=== PATIENT | female | born 1955 | race Caucasian/White ===

== ENCOUNTER 2022-10-21 08:36 | Day surgery (SDC) | payer MEDICARE, SELFPAY ==
--- NOTE | 2022-10-20 12:27 | HO.ANESPROP2 ---
Documented by User: Carly Taylor NP 10/20/22 12:33 HPI - Anesthesia Eval Consult details Narrative: 66yo F for [facility] Past Medical History Medical History (Updated 10/21/22 @ 11:57 by Julianne Armas MD) Cervical disc disease Depression GERD (gastroesophageal reflux disease) HTN (hypertension) Osteoporosis Thyroid nodule Vitamin D deficiency Surgical History Surgical History H/O cervical discectomy (~2012) H/O section (~1980) H/O esophagogastroduodenoscopy (~2016) H/O: hysterectomy (~1988) History of appendectomy (~1972) History of cholecystectomy (~2009) Social History Social History Patient Tobacco Use Status: Never used Tobacco Use of substances other than those prescribed or required for medical reasons: No Are you DNR?: No Advance Directives: No Advance Directives Information Provided: Yes Meds Allergies Allergy/AdvReac Type Severity Reaction Status Date / Time codeine [Codeine] Allergy Unknown UNKNOWN Unverified 06/28/20 17:00 latex [Latex] Allergy Unknown RASH Unverified 06/28/20 17:00 levofloxacin [From Levaquin] Allergy Unknown UNKNOWN Unverified 06/28/20 17:00 Home Medications Medication Instructions Recorded Confirmed Last Taken Type alendronate 70 mg tablet 1 tab PO QWEEK 10/20/22 10/20/22 Unknown History calcium phosphate,dibasic 77 1 tab PO 10/20/22 Unknown History mg-vitamin D3 400 unit tablet fluoxetine 40 mg capsule 1 cap PO DAILY 10/20/22 10/20/22 10/21/22 History melatonin 3 mg tablet 3 mg PO BEDTIME PRN Insomnia 10/20/22 10/20/22 Unknown History multivitamin 1 tab PO DAILY 10/20/22 10/20/22 Unknown History omeprazole 20 mg capsule,delayed 20 mg PO DAILY 10/20/22 10/21/22 Unknown History release amlodipine 5 mg tablet 1 tab PO DAILY 10/21/22 10/21/22 10/21/22 History Exam Exam Date and Time: October 20, 20227 Documented by User: Julianne Armas MD 10/21/22 11:59 PMF Past Medical History Medical History (Updated 10/21/22 @ 11:57 by Julianne Armas MD) Cervical disc disease Depression GERD (gastroesophageal reflux disease) HTN (hypertension) Osteoporosis Thyroid nodule Vitamin D deficiency Family History Family history of problems with anesthesia: No Surgical History Surgical History H/O cervical discectomy (~2012) H/O section (~1980) H/O esophagogastroduodenoscopy (~2016) H/O: hysterectomy (~1988) History of appendectomy (~1972) History of cholecystectomy (~2009) History of Problems with Anesthesia: No Social History Social History Patient Tobacco Use Status: Never used Tobacco Use of substances other than those prescribed or required for medical reasons: No Are you DNR?: No Advance Directives: No Advance Directives Information Provided: Yes Meds Allergies Allergy/AdvReac Type Severity Reaction Status Date / Time codeine [Codeine] Allergy Unknown UNKNOWN Unverified 06/28/20 17:00 latex [Latex] Allergy Unknown RASH Unverified 06/28/20 17:00 levofloxacin [From Levaquin] Allergy Unknown UNKNOWN Unverified 06/28/20 17:00 Home Medications Medication Instructions Recorded Confirmed Last Taken Type alendronate 70 mg tablet 1 tab PO QWEEK 10/20/22 10/20/22 Unknown History calcium phosphate,dibasic 77 1 tab PO 10/20/22 Unknown History mg-vitamin D3 400 unit tablet fluoxetine 40 mg capsule 1 cap PO DAILY 10/20/22 10/20/22 10/21/22 History melatonin 3 mg tablet 3 mg PO BEDTIME PRN Insomnia 10/20/22 10/20/22 Unknown History multivitamin 1 tab PO DAILY 10/20/22 10/20/22 Unknown History omeprazole 20 mg capsule,delayed 20 mg PO DAILY 10/20/22 10/21/22 Unknown History release amlodipine 5 mg tablet 1 tab PO DAILY 10/21/22 10/21/22 10/21/22 History Exam Height,Weight and Vital Signs: Height 4 ft 11 in Weight 61.689 kg Vital Signs Temp Pulse Resp BP Pulse Ox O2 Del Method 10/21/22 09:51 98.0 F 73 16 149/74 H 96 Room Air Airway Mallampati Class: III TM Dist: >3cm Neck ROM: Full Loose/Missing/Broken Teeth: No (Denies broken, loose, missing teeth) Heart: RRR Lungs: CTAB Assessment and Plan Assessment Anesthesia Assessment: Anesthesia Plan Discussed and Chart Reviewed Final Anesthetic Review Family History of Problems with Anesthesia: No History of Problems with Anesthesia: No NPO: Yes ASA Class: II Final Preanesthetic Review: No Changes in Pt Med Stat, Meds/Allgs Chart Reviewed, Consent Obtained/Reviewed and Anes Risks/Benef Reviewed Patient Risk: Low Procedure Risk: Low Assessment/Block/Sedation in SS: Assess/Block/Sedation-SS Anesthetic Plan Anesthetic Plan: MAC: Disposition: Standard PACU
[2022-10-21 09:46] VITALS: BMI 27.4
[2022-10-21 09:51] VITALS: BP 149/74; PULSE 73; RESP 16; TEMP 36.7; O2SAT 96
[2022-10-21] MEDS: Lactated Ringers 1,000 ML 100 ML IVCONT (10:29)
--- NOTE | 2022-10-21 12:15 | MHC.SHP ---
Pre-Procedural Eval Section A Date of Service: 10/21/22 The patient is an INPATIENT: No Changes since office visit: No Cold of Flu in the past 2 weeks, No New Medical Problems, No Changes in Medication and No Patient answered all questions The History & Physical has been completed within 30 days and I have reviewed it.: Yes Section B Chief Complaint: Encounter for screening for malignant neoplasm of Allergies: Allergies Allergy/AdvReac Type Severity Reaction Status Date / Time codeine [Codeine] Allergy Unknown UNKNOWN Unverified 06/28/20 17:00 latex [Latex] Allergy Unknown RASH Unverified 06/28/20 17:00 levofloxacin [From Levaquin] Allergy Unknown UNKNOWN Unverified 06/28/20 17:00 Plan I have reviewed the history and physical and performed a pertinent physical examination on my patient. No changes have occurred unless specified. Time Spent With Patient Time: Total time managing care of this patient today ____ minutes.
--- NOTE | 2022-10-21 12:52 | PM.OP ---
Brief Operative Note Date of Service: 10/21/22 Pre-op diagnosis: SCREENING Post-op diagnosis: same Procedure: COLONOSCOPY Surgeon: Willi Franco Anesthesia: MAC Was an Firefighter [employer] used for this Procedure?: No Estimated blood loss (mL): 2 Pathology: other Condition: stable Disposition: PACU
[2022-10-21 12:57] VITALS: BP 104/44; PULSE 69; RESP 17; TEMP 37.3; O2SAT 100
[2022-10-21 13:25] VITALS: BP 123/51; PULSE 63; RESP 18; TEMP 36.1; O2SAT 96
--- NOTE | 2022-10-21 23:45 | OP_ITS ---
SURGEON: Willi Franco MD INDICATIONS: Colon cancer screening and family history of colon cancer. PREOPERATIVE DIAGNOSIS: POSTOPERATIVE DIAGNOSIS: PROCEDURE PERFORMED: Colonoscopy to the cecum with biopsy. ESTIMATED BLOOD LOSS: COMPLICATIONS: ANESTHESIA: Monitored anesthesia care. ASSISTANTS: SPECIMENS: DESCRIPTION OF PROCEDURE: History and physical was performed. The procedure was performed 10/21/2022. The digital rectal exam was performed and was found to be normal. The Olympus pediatric video colonoscope was introduced into the rectum and advanced to the cecum without difficulty. The cecum was identified by transillumination, palpation, and identification of ileocecal valve. Examination was performed. The scope was removed. She tolerated the procedure well and was returned to recovery room in stable condition. FINDINGS: The terminal ileum was not examined. The visualized colonic mucosa was normal. The quality of the prep was good. There was a single polyp was located at 20 cm measuring less than 5 mm and was removed with biopsy forceps. No other polyps were identified. The sigmoid was quite tortuous. Retroflexed examination showed small internal hemorrhoids. IMPRESSION: Colon polyp. RECOMMENDATION: 1. Follow up biopsy results. MD YOLANDA Simpson/JAQUELINE / [id number]
== END 2022-10-21 13:52 | disposition home or self-care (01) ==
PROVIDERS: PCP Internal Medicine; Visit Provider Internal Medicine Gastroenterology
PROC: 0DJD8ZZ Inspection of Lower Intestinal Tract, Via Natural or Artificial Opening Endoscopic (ICD-10-PCS; CPT 45378; principal; 2022-10-21 09:50)
DX: Z12.11 Encounter for screening for malignant neoplasm of colon (principal); Z80.0 Family history of malignant neoplasm of digestive organs; D12.5 Benign neoplasm of sigmoid colon; K64.8 Other hemorrhoids; K21.9 Gastro-esophageal reflux disease without esophagitis; I10 Essential (primary) hypertension; E55.9 Vitamin D deficiency, unspecified; Z79.899 Other long term (current) drug therapy; Z88.8 Allergy status to other drugs, medicaments and biological substances; Z91.040 Latex allergy status
CPT/HCPCS: 45380; 88305